=== PATIENT | female | born 1990 | race Caucasian/White ===

== ENCOUNTER 2023-10-02 08:45 | Outpatient (CLI) | payer OTHER, SELFPAY | END 2023-10-02 08:46 | disposition home or self-care (01) | LOC: NFLDREF 10-04 07:01 | PROVIDERS: Visit Provider Advanced Practice Midwife | DX: Z34.93 Encounter for supervision of normal pregnancy, unspecified, third trimester (principal); Z3A.28 28 weeks gestation of pregnancy | CPT/HCPCS: 86592; 86787 ==

== ENCOUNTER 2023-11-29 10:34 | Outpatient (CLI) | payer OTHER, SELFPAY ==
[2023-11-30 13:42] LABS: Strep B DNA Probe Negative (Negative)
[2023-11-30 14:04] LABS: Strep B Susceptibility Needed? No
== END 2023-11-29 10:35 | disposition home or self-care (01) ==
PROVIDERS: Visit Provider Registered Nurse
DX: Z34.93 Encounter for supervision of normal pregnancy, unspecified, third trimester (principal); Z3A.36 36 weeks gestation of pregnancy
CPT/HCPCS: 87081; 87653

== ENCOUNTER 2023-12-17 18:10 | Outpatient (CLI) | payer OTHER, SELFPAY ==
[2023-12-17 18:39] VITALS: PULSE 88; O2SAT 97
[2023-12-17 18:40] VITALS: BP 124/82; PULSE 95
--- NOTE | 2023-12-17 22:15 | PC.OBNST ---
NST Note NST Note Start: 12/17/23 18:21 Freq: ONCE Status: Active Protocol: Document 12/17/23 22:12 MMT (Rec: 12/17/23 22:14 MMT [id number]) NST Note 3 Para (# of births) 0 EDC 12/21/23 Gestational Age In Weeks & Days 39 Weeks & 3 Days Patient Presented with Complaint(s) of Contractions/cramping Other Complaints Pt has been kimber every 5-6 minutes for the past hour. Pt had been kimber since 329. Reactive Yes Appropriate for Gestational Age Yes RN Shelia Zelaya RN Date 12/17/23 Reactive Yes Appropriate for Gestational Age Yes RN Yevgeniy Langford RN Date 12/17/23 OB NST charge Yes Complete NST Note via Write Note Yes The provider's electronic signature indicates the NST is reactive/appropriate for gestational age. *Note to provider: If an addendum is required, open the patient's chart and click on the note under the Nurse/Allied Health tab.
== END 2023-12-17 22:03 | disposition home or self-care (01) ==
LOC: OB OUT 18:11 → OB 18:11
PROVIDERS: Visit Provider Midwife
DX: O47.1 False labor at or after 37 completed weeks of gestation (principal); Z3A.39 39 weeks gestation of pregnancy
CPT/HCPCS: 59025; G0463

== ENCOUNTER 2023-12-18 23:04 | Outpatient (CLI) | payer OTHER, SELFPAY ==
[2023-12-18 23:15] VITALS: BP 125/81; PULSE 97
[2023-12-18 23:23] VITALS: TEMP 36.6
[2023-12-19] MEDS: hydrOXYzine pamoate 25 MG CAPSULE 100 MG PO (00:37)
[2023-12-19] MEDS: MORPHINE 10 MG/ML inj IM (00:37)
--- NOTE | 2023-12-19 01:04 | PC.OBNST ---
NST Note NST Note Start: 12/18/23 23:07 Freq: ONCE Status: Active Protocol: Document 12/19/23 01:03 CHERI (Rec: 12/19/23 01:04 CHERI [id number]) NST Note 3 Para (# of births) 0 EDC 12/21/23 Gestational Age In Weeks & Days 39 Weeks & 5 Days Patient Presented with Complaint(s) of Contractions/cramping Reactive Yes Appropriate for Gestational Age Yes RN Tiffany Hernandez RN Date 12/19/23 Reactive Yes Appropriate for Gestational Age Yes CHRISTY Calle RN Date 12/19/23 OB NST charge Yes Complete NST Note via Write Note Yes The provider's electronic signature indicates the NST is reactive/appropriate for gestational age. *Note to provider: If an addendum is required, open the patient's chart and click on the note under the Nurse/Allied Health tab.
== END 2023-12-19 01:04 | disposition home or self-care (01) ==
LOC: OB OUT 23:04 → OB 23:05
PROVIDERS: Visit Provider Advanced Practice Midwife
DX: O47.03 False labor before 37 completed weeks of gestation, third trimester (principal); Z3A.39 39 weeks gestation of pregnancy
CPT/HCPCS: 59025; G0463; A9270; J2270

== ENCOUNTER 2023-12-20 11:44 | Inpatient (IN) | payer OTHER, SELFPAY ==
[2023-12-20] VITALS (7 sets, daily range): BP systolic 103–131; BP diastolic 69–81; PULSE 76–102; RESP 16–18; TEMP 36.6–36.8; O2SAT 92–100; BMI 26.3
--- NOTE | 2023-12-20 10:07 | W.PM.LDBA ---
Subjective History of Present Illness Date Seen: 12/20/23 Narrative: Patient is being admitted to Labor and Delivery for prodromal labor and increased support. She is a 33 year old at 39w6d weeks gestation. She has been in early labor since early Monday morning. Her full history and physical was dictated by Lori DELGADO on 12/06/2023. Please see this for details. Specific Issues/Plans G 3 P 0020 Hospital H& P completed 12/06/2023 by Lori DELGADO # H/o Melanoma in 2011. Due for f/u with Derm. Patient planning to schedule later this year. # Anemia. PO iron started at 28 weeks. #Measuring small for dates at 38 wks, growth u/s ordered. Covid: Completed initial vaccine. No boosters. Recommended. Patient declines. Tdap: 10-18-23 05/25/2023: Blood type A positive, antibody screen negative, hemoglobin 13.7, platelets 351, rubella immune, VDRL nonreactive, hepatitis-B antigen nonreactive, HIV nonreactive, chlamydia and gonorrhea both negative, urine culture negative, Pap normal, negative HPV, hepatitis-C negative, hemoglobin A1c 5.3, varicella unknown 06/22/2023: Maternity 21 negative Ultrasound: May 25: Single live IUP heart rate 167 beats per minute 08/04/2023: anatomy scan: Normal ultrasound. Growth consistent with dates. EFW 62%. Normal anatomy. 32wk Mental Health: PHQ: 8 BAM: 3 OB - Problem Based A/P Additional Plan (1) Pain during labor: Status: Acute (2) : Status: Acute (3) Anemia affecting in third trimester: Status: Acute Plan ASSESSMENT:?? 33 at 39w6d weeks gestation?? complicated by:??anemia in , low fundal heights Labor type: Early prodromal labor?? Category 1 FHR pattern.??? Labor uncomplicated ?? GBS negative? PLAN:?? 1. Routine intrapartum cares as ordered. Continue with expectant management?? 2. Monitoring per policy, intermittent?? 3. Planning unmedicated . Desires water . Consent signed. Hep C negative. Candidate for analgesia of choice.?Will use code word for wanting an epidural if she changes her mind?? 4. Patient encouraged to reposition and ambulate to promote physiologic labor and alternating with rest.?? 5. Blood type ordered so we have testing at our in house lab and ok'd by patient.? 6. Anticipate ? 7. To consider augmentation as patient desires. Delivery/Labor/Induction Plan Plan: expectant management OB Exam Physical Exam Vital signs: VSS Narrative: Vitals Reviewed Constitutional:? Alert and oriented x3 HEENT:? Normocephalic, atraumatic Neck:? Supple Lungs:? Clear to auscultation bilaterally Heart:? Regular rate and rhythm, no murmur, rub or gallop Abdomen:? Soft, nontender, and gravid. Vertex by Joshua's, confirmed with cervical exam. Extremities:? No edema or erythema Cervix: 3 cm/95%/-1 station/vertex with palpable sutures NST: 140 bpm/moderate variability/accelerations present/decelerations absent/contractions q 4-5 min moderate to palpate x 60-90 sec with >1 min soft abdomen in between
[2023-12-20 12:55] LABS: Basophils Absolute Auto 0.02 K/uL (0.00-0.30); Basophils Percent Auto 0.2 % (0.0-3.0); Eosinophils Absolute Auto 0.03 K/uL (0.00-0.50); Eosinophils Percent Auto 0.3 % (0.0-7.0); Hematocrit 38.7 % (33.0-51.0); Immature Granulocytes Abs Auto 0.07 K/uL (0.00-0.30); Immature Granulocytes Pct Auto 0.7 %; Lymphocytes Percent Auto 15.4 % (20-44); Mean Corpuscular HGB Conc 34 gm/dL (32-36); Mean Corpuscular Hemoglobin 30 pg (26-34); Mean Corpuscular Volume 89 fL (80-100); Monocytes Percent Auto 4.4 % (0.0-11.0); Platelet Count* 268 K/uL (140-440); RDW Coefficient of Variation % 13.5 % (11.5-15.5); Red Blood Count 4.34 m/uL (4.00-5.20)
--- NOTE | 2023-12-20 18:50 | P.OBPN_ITS ---
Subjective Time Seen by Provider: 16:30 Date Seen: 12/20/23 Narrative: Damaris is coping well with labor. Contractions are reported as stronger and closer together. She is feeling them mostly in the front low abdomen. Her mother is here supporting her. She is trying to get rest, stay hydrated and eat. Objective Exam: Objective: Constitutional: Alert and oriented x3, no distress, coping well Vital signs stable, see nurse documentation Abdomen: gravid, contractions palpate mild to moderate with contractions and soft between for >1 minute Cervix: deferred. NST: 145 bpm/moderate variability/accelerations present/decelerations absent/contractions q 3-5 min Vital Signs: Last Vital Signs Temp 98.2 F 12/20/23 14:46 Pulse 91 12/20/23 14:46 Resp 16 12/20/23 14:46 BP 125/75 12/20/23 14:46 Pulse Ox 92 12/20/23 14:47 Plan Plan: ASSESSMENT:?? 33yo at 39w6d weeks gestation?? complicated by:??anemia Labor type: Spontaneous, Active labor?? Category 1 FHR pattern.??? Labor complicated by: none?? GBS negative? ?? PLAN:?? 1. Routine intrapartum cares as ordered. Continue with expectant management?? 2. Monitoring per policy, intermittent, though nurse just had her on the continuous monitor to time the contractions more accurately.?? 3. Planning unmedicated . Desires water . Consent signed. Hep C negative. Candidate for analgesia of choice.??? 4. Patient encouraged to reposition and ambulate to promote physiologic labor a nd .?? 5. Anticipate , can consider augmentation if labor is protracted when active or when patient desires. ? ?
--- NOTE | 2023-12-20 18:59 | PM.OBPNL ---
Subjective Time Seen by Provider: 18:45 Date Seen: 12/20/23 Narrative: Damaris is feeling much more intense contractions over the last half hour. She is tearful at times, but seems to be relaxing well. She has not mentioned her code word for pain medication. Rick and her friend are supporting her at the bedside. Encouraging PO fluids and position changes. She is requesting the labor tub. Objective Vital Signs: Last Vital Signs Temp 98.2 F 12/20/23 14:46 Pulse 91 12/20/23 14:46 Resp 16 12/20/23 14:46 BP 125/75 12/20/23 14:46 Pulse Ox 92 12/20/23 14:47 Comments: Objective: Constitutional: Alert and oriented x3, mild distress, coping well Vital signs stable, see nurse documentation Abdomen: gravid, contractions palpate moderate to strong and are soft between Cervix: deferred NST: 145 bpm/audible increases, no audible decreases/contractions are q 3-5 minutes Plan Plan: ASSESSMENT:?? 33yo at 39w 6d gestation?? complicated by:??anemia, currently stable Labor type: Spontaneous, Active labor?? Category 1FHR pattern.??? Labor complicated by: none?? GBS negative? ?? PLAN:?? 1. Routine intrapartum cares as ordered. Continue with expectant management?? 2. Monitoring per policy, intermittent?? 3. Planning unmedicated . Desires water . Consent signed. Hep C negative. Candidate for analgesia of choice.??? 4. Patient encouraged to reposition and ambulate to promote physiologic labor and .?? 5. Anticipate ? ?
--- NOTE | 2023-12-20 23:28 | PM.OBPNL ---
Subjective Time Seen by Provider: 23:15 Date Seen: 12/20/23 Narrative: Damaris has been coping well. Contractions have not continued to strengthen or increase in frequency but still palpate moderate. The RN checked her cervix to see if there was time for Liu to go care for the dogs and found her 4 cm dilated. There have been no heart rate concerns. She is still well supported by Imelda Hatfield and her mother. She is eating small amounts and taking PO well. Objective Exam: Objective: Constitutional: Alert and oriented x3, no distress, coping well Vital signs stable, see nurse documentation Abdomen: gravid, contractions palpate moderate with contractions per nursing NST: 145 bpm with audible increases, no decreases/contractions q 4-5 min Vital Signs: Last Vital Signs Temp 98.1 F 12/20/23 21:35 Pulse 97 12/20/23 20:12 Resp 18 12/20/23 20:12 BP 103/69 12/20/23 20:12 Pulse Ox 100 12/20/23 19:00 Plan Plan: ASSESSMENT:?? 33 at 39.6 weeks gestation?? complicated by:??anemia, now stable Labor type: Spontaneous, prodromal labor Category 1 FHR pattern.??? Labor complicated by: prodromal labor?? GBS negative? ?? PLAN:?? 1. Routine intrapartum cares as ordered. Continue with expectant management?? 2. Monitoring per policy, continuous or intermittent?? 3. Planning unmedicated . Desires water . Consent signed. Hep C negative. Candidate for analgesia of choice.??? 4. Patient encouraged to reposition and ambulate to promote physiologic labor and .?? 5. Options reviewed including augmentation with AROM, therapeutic rest with vistaril and morphine, epidural pain management. Patient would like to utilized morphine and vistaril at full strength at this time. Sleep encouraged for all. No medical necessity to progress quicker at this time outside of her preference and how she is coping. ? 6. Recommended IV start and Active management of third stage due to prolonged labor. 7. Anticipate ? ?
[2023-12-21] VITALS (28 sets, daily range): BP systolic 100–136; BP diastolic 51–91; PULSE 79–118; RESP 12–18; TEMP 36.5–36.9; O2SAT 95–97
[2023-12-21] MEDS: hydrOXYzine pamoate 25 MG CAPSULE 100 MG PO (00:05)
[2023-12-21] MEDS: MORPHINE 10 MG/ML inj IM (00:06)
--- NOTE | 2023-12-21 06:26 | PM.OBPNL ---
Subjective Date Seen: 12/21/23 Narrative: Damaris has gotten some therapeutic rest and is now open to pitocin augmentation after breakfast. RN to initiate. Objective Exam: Objective: Vital signs stable, see nurse documentation Cervix: per earlier nurse exam 4 cm/90%/0 station NST: 130 bpm/moderate variability/+accelerations/no decelerations/contractions irregular Vital Signs: Last Vital Signs Temp 98 F 12/21/23 00:01 Pulse 79 12/21/23 04:31 Resp 18 12/21/23 00:01 BP 121/74 12/21/23 04:31 Pulse Ox 100 12/20/23 19:00 Plan Plan: Labor A/P? ASSESSMENT:?? 33yo at 40w0d gestation?? complicated by:??anemia, now stable Labor type:Spontaneous, prodromal labor?? Category 1 FHR pattern.??? Labor complicated by: prodromal labor?? GBS negative? ?? PLAN:?? 1. Routine intrapartum cares as ordered. Augmentation with pitocin with patient consent given.? 2. Monitoring per policy, continuous? 3. Planning unmedicated . Desires water . Consent signed. Hep C negative. Candidate for analgesia of choice.??? 4. Patient encouraged to reposition and ambulate to promote physiologic labor and .?? 5. Plan IV access and Active management of third stage due to prolonged labor.? 6. Anticipate ?
[2023-12-21] MEDS: LACTATED RINGERS 1000 ML 1,000 ML 75 ML IV (06:41)
[2023-12-21] MEDS: OXYTOCIN 30 unit/500 ML in NS 30 UNIT/500 ML BAG IVPB (06:42)
[2023-12-21 07:13] LABS: Slide Review Reflex No
[2023-12-21] MEDS: ONDANSETRON 2 MG/ML inj 4 MG IV (09:54)
--- NOTE | 2023-12-21 09:55 | PM.OBPNL ---
Subjective Time Seen by Provider: 09:00 Date Seen: 12/21/23 Narrative: ?Damaris is coping well with labor pain/contractions. ?Liu and her friend are with her for support. ?She would like to continue with repositioning, relaxation and breathing for comfort and pain management.?Has not mentioned her code word for alternative pain management at this time. Encouraged to eat, she stated she felt nauseated between contractions so Zofran was offered and she agreed to try this. Her friend was going to order her food and then after she has eaten, she is encouraged to do [employer] circuit with RN help. Objective Exam: VSS, afebrile General Appearance:? Calm, cooperative. ?No acute distress. ? Psychiatric Exam: Alert and oriented, appropriate affect Abdomen: Gravid Ctx: ?Q 2-3 min apart. ? ? ?Strong FHTs: ?Baseline: 150. ? ? Variability: moderate. ?Accels:+ . ? ?Decels: ?-. SVE: deferred Membranes: Intact ? Vital Signs: Last Vital Signs Temp 97.9 F 12/21/23 07:20 Pulse 82 12/21/23 08:22 Resp 18 12/21/23 00:01 BP 127/90 H 12/21/23 08:22 Pulse Ox 100 12/20/23 19:00 Plan Plan: Assessment:?? at 40.0 weeks gestation?? GBS neg Patient is coping well with challenges of labor.?? Labor type: Induced, Active labor? Category 1 FHR pattern.? complicated by: anemia, now stable Labor complicated by: prolonged prodromal labor, now on IV Pitocin? Plan:?? Pt to eat if able then [employer] as able Continue with routine intrapartum cares as ordered.?? Patient encouraged to move and change positions to promote physiologic labor and .?? Nonpharmacologic comfort measures per patient preference. Candidate for analgesia of choice if desired. Patient planning waterbirth Anticipate progress to NVD. ?
--- NOTE | 2023-12-21 10:29 | P.OBPN_ITS ---
Subjective Date Seen: 12/21/23 Narrative: Damaris is feeling more pressure with contractions and had passed a mucus plug recently. She is requesting a cervical exam to help her with decisions about what she would like to do moving forward Objective Exam: VSS, afebrile General Appearance:? Calm, cooperative. ?No acute distress. ? Psychiatric Exam: Alert and oriented, appropriate affect Abdomen: Gravid Ctx: ?Q 2-3 min apart. ? ? ?Strong FHTs: ?Baseline: 145. ? ? Variability: moderate. ?Accels: -. ? ?Decels: ?-. SVE: /0, bloody show Membranes: Intact ? Vital Signs: Last Vital Signs Temp 98.2 F 12/21/23 09:55 Pulse 88 12/21/23 10:00 Resp 18 12/21/23 00:01 BP 130/80 12/21/23 10:00 Pulse Ox 100 12/20/23 19:00 Plan Plan: Assessment:?? at 40.0 wks gestation?? GBS neg Patient is coping well with challenges of labor.?? Labor type: Induced, Active labor? Category 2 FHR pattern.? complicated by: anemia, now stable Labor complicated by: prolonged prodromal labor, now 8cm? Plan:?? Pt would like to enter waterbirth tub at this time Continue with routine intrapartum cares as ordered.?? Patient encouraged to move and change positions to promote physiologic labor and .?? Nonpharmacologic comfort measures per patient preference. Candidate for a nalgesia of choice if desired. Patient planning waterbirth Anticipate progress to NVD. ?
[2023-12-21] MEDS: LACTATED RINGERS 1000 ML 1,000 ML 500 ML IV (13:30)
[2023-12-21] MEDS: LIDOCAINE 1 % PF 30 ML INJECTION (14:20)
--- NOTE | 2023-12-21 15:09 | W.PM.OBVAGDE ---
OB Procedure Vag Delivery Mother Details Mother Details: The patient is a 33 year-old, 3, Para 0, admitted on 12/20/23 at 39.6 weeks gestation. : 3 Para: 1 Weeks Gestation: 40.0 Admission Date: 12/20/23 Additional Details Amniotic Membrane Status: AROM Amniotic Membrane Rupture Date: 12/21/23 Amniotic Membrane Rupture Time: 12:17 Amniotic Membrane Fluid Description: Meconium Stained Analgesia/Anesthesia Type: None and Local (for repair) Waterbirth: No Pitcoin: Yes Intrapartal Events: Labor Induction Delivery augmentation: rupture of membranes Labor Onset: 10:20 Complete: 12:42 Pushin:44 Heart: heart tones during second stage were continuously monitored with early and variable decelerations and moderate variability. Delivery Details Delivery Date: 12/21/23 Delivery Time: 14:05 Route of delivery: Infant Gender: Female Infant Viability: Alive; Heart Rate Present Position at Delivery: OA Delivery Details: 33?y.o?at 40.0 weeks.? Damaris was admitted with prolonged prodromal labor for rest and support. She was offered induction with Pitocin this morning after having stayed overnight and slept off and on. She was started on IV Pitocin this morning and progressed normally to 8cm at 1020. She was planning a waterbirth and desired to enter the tub at that time. She began to spontaneously push with some contractions around 1130 and was repositioning often. IV Pitocin was turned off just before she entered the tub as she was kimber often. Intermittent monitoring in the tub for FHR 145-155 with no audible decelerations was noted for most of the time she was in the waterbirth tub. Around 1200 FHR was consistently 160-170's so decision was made to have her exit the tub and be placed on external monitor. A fluid bolus was given and cervical exam was rim on right with intact membranes. Discussed R/B/A of AROM at that time and consent was given to proceed. AROM showed small amount of bloody fluid, unclear if there was meconium. Shortly after she began pushing and while pushing it became clear there was meconium stained fluid so pediatric provider was asked to attend delivery. ? She became complete at 1242.??She pushed in right tilt, semi-fowlers and left side positions effectively.? Spontaneous vaginal delivery at 1405 of?a viable? female infant.??Delivered in vertex OA position.??Shoulders delivered easily.? Spontaneous cry noted.?? placed on maternal abdomen.??Cord?was clamped and cut after a 3 minute delay, then the pediatric provider requested baby be brought to the warmer for evaluation.??Nose and mouth were bulb suctioned.? Shoulder dystocia: no? Nuchal cord: no? Meconium stained?fluid: yes ? Water : no? ? ? 7 at 1 minute and 9 at 5 minutes.? Weight is pending. ? Placenta delivered spontaneously and?complete?at 1413 with a?3 vessel?cord.?? Bleeding controlled with fundal massage and?pitocin?for AMTSL.? ? Mother and were stable after delivery.? ? Lacerations:? bilateral labial tears repaired with 3-0?vicryl.?? ? Bleeding?post delivery?was: minimal. ?The fundus was firm to palpation.? Blood loss: 50?mL.? Blood loss measurement type: QBL? ? ? Sponge,?lap?and needles counts are correct.? Mother and were stable after delivery.? 1 Minute Interval Total Score: 7 5 Minute Interval Total Score: 9 Additional Details Shoulder Dystocia: No Placenta Delivery Time: 14:13 Placental Delivery Description: Spontaneous Delivery repair: Vicryl Procedure Done: Global Blood Loss: 50 Laceration: Labial (bilateral) Blood Loss Measurement Type: QBL Bakri Used: No Sponge/Need Count Correct: Yes Cord Vessel Description: 3 Vessels Event Summary Status: Mother and infant were stable after delivery. Disposition: floor
[2023-12-21] MEDS: IBUPROFEN 600 MG TABLET PO (18:59)
[2023-12-22] VITALS (8 sets, daily range): BP systolic 106–117; BP diastolic 69–76; PULSE 83–111; RESP 12–18; TEMP 36.6–37.2; O2SAT 95–97
[2023-12-22 01:51] LABS: Rapid Plasma Reagin (RPR) Non Reactive (Non Reactive)
[2023-12-22] MEDS: IBUPROFEN 600 MG TABLET PO ×4 (04:15→23:45)
--- NOTE | 2023-12-22 08:42 | P.OBPN_ITS ---
OB - PN:Subj Subjective Date Seen: 12/22/23 Narrative: Damaris is a 33 y.o. G 1 P 1 who was admitted to L & D for prodromal labor and poor labor support. She had a NVD that was uncomplicated. The patient feels well. ?The pain is well controlled with current medications. ?She has no new com plaints. ?She is breast feeding and reports things are going well. the patient has done well.? Vitals have been stable.? She has remained afebrile.? Has a good appetite, is tolerating a general diet. ?She is voiding without difficulty.? She is passing gas and has not had a bowel movement.? She is ambulating and denies any dizziness.? Has small amount of rubra lochia. OB - PN: Obj Exam Physical Exam: Vital signs: Temp Pulse Resp BP Pulse Ox O2 Del Method 98.9 F 111 H 16 106/69 95 Room Air 12/22/23 08:11 12/22/23 08:11 12/22/23 08:11 12/22/23 08:11 12/22/23 08:11 12/22/23 08:11 Narrative: GENERAL APPEARANCE:? normal affect, alert, no distress MOOD:? appropriate CHEST:? clear to auscultation HEART:? regular rate and rhythm ABDOMEN:? soft, non-tender the uterine fundus is At Umbilicus, Midline and is appropriate for the stage of recovery. PERINEUM:? mild edema of the perineum, there is a labial laceration, that is healing well. EXTREMITIES:? normal and no edema OB - PN: Obj Data Labs Labs: Laboratory Results - last 24 hr 12/20/23 12:40 RPR Screen Non Reactive OB - PN: A/P Delivery Assessment and Plan (1) care and examination immediately after delivery: Status: Acute (2) Lactating mother: Status: Acute Plan day: 1 Plan: routine care Comments: plan: , may see if needed Anticipate discharge home tomorrow.
[2023-12-22] MEDS: DOCUSATE SODIUM 100 MG CAPSULE PO (09:52)
[2023-12-23 04:43] VITALS: BP 107/73; PULSE 96; RESP 16; TEMP 36.9; O2SAT 96
[2023-12-23 08:43] VITALS: BP 103/70; PULSE 98; RESP 16; TEMP 37.1
--- NOTE | 2023-12-23 11:05 | P.DS_ITS ---
DS: Providers Provider Date Seen: 12/23/23 Date of admission: 12/20/23 11:44 Primary care physician: Not a Local Provider Admitting Clinician: Eleonora Lao CNM Attending Physician on discharge: Supa Verdugo CNM Date of Discharge: 12/23/23 DS: Diagnosis Discharge Diagnosis (1) Lactating mother: Status: Acute (2) care and examination immediately after delivery: Status: Acute (3) Anemia affecting in third trimester: Status: Acute Exam Narrative: Exam Narrative: VSS, afebrile GENERAL APPEARANCE: ?normal affect, alert, no distress MOOD: ?appropriate HEENT: normocephalic, neck supple, full ROM CHEST: ?Symmetrical chest wall movement. ?Normal respiratory effort. ?Clear to auscultation HEART: ?regular rate and rhythm ABDOMEN: ?soft, non-tender. Uterine fundus is firm, at Umbilicus, Midline and is appropriate for the stage of recovery. ?Bowel sounds present. PERINEUM: ?mild edema of the perineum, there is a labial lacerations that are healing well. EXTREMITIES: ?normal and no edema Const: Vital Signs, click to edit/add: Vital Signs - 24 hr 12/22/23 11:30 12/22/23 11:48 12/22/23 15:41 Temperature 98.0 F 98.0 F 98.0 F Pulse Rate [Blood Pressure Cuff] 95 95 93 Respiratory Rate 18 16 16 Blood Pressure [Ri ght Arm] 107/74 107/74 117/72 Pulse Oximetry 97 97 97 Oxygen Delivery Me thod Room Air Room Air Room Air 12/22/23 19:58 12/22/23 23:39 12/23/23 04:43 Temperature 98.2 F 98.5 F 98.5 F Pulse Rate [Blood Pressure Cuff] 86 83 96 Respiratory Rate 16 16 16 Blood Pressure [Ri ght Arm] 113/76 110/73 107/73 Pulse Oximetry 97 97 96 Oxygen Delivery Me thod Room Air Room Air Room Air 12/23/23 08:43 Temperature 98.8 F Pulse Rate [Blood Pressure Cuff] 98 Respiratory Rate 16 Blood Pressure [Ri ght Arm] 103/70 Pulse Oximetry Oxygen Delivery Me thod Room Air Documenting provider has reviewed patient's vital signs: yes OB - DS: Summary Hospital Course Hospital Course: Damaris is a 33 y.o. who was admitted to L & D for induction of labor. ?She had an uncomplicated NVD.?The patient feels well. ?The pain is well controlled with current medications. ?She has no new complaints. ?She is breast feeding and reports things are going well.? the patient has done well.? Vitals have been stable.? She has remained afebrile.? Has a good appetite, is tolerating a general diet. ?She is voiding without difficulty.? She is passing gas and has not had a bowel movement.? She is ambulating and denies any dizziness.? Has Small amount of rubra lochia. ?She is undecided on her plan for prevention. Damaris talked freely about her partners struggle with alcohol abuse. She feels he is doing well at this time but acknowledges he has a problem. She reports feeling safe at home with him and denies any abuse. She was appreciative of all the support they have received while in the hospital. Peripartum Data delivery method: Vaginal Laceration description: Labial complications: none [place] Gender: Female Discharge Plan: Home Status at Discharge Functional status at discharge: independent ambulation Overall status at discharge: patient is progressing back to baseline Time Spent with Patient Time attestation: Total time spent providing and/or coordinating discharge services: Time spent: Less than 30 minutes Discharge Plan Discharge Disposition: Home, Self-Care Date of Admission: 12/20/23 11:44 Attending Provider on Discharge: Supa Verdugo Primary Care Provider: Provider,Not a Local Condition: Stable Anticipated Discharge Date/Time: 12/23/23 15:00 Discharge Medications: New acetaminophen 500 mg Tablet 1,000 mg PO Q6H PRNQty: 0 0RF docusate sodium 100 mg Capsule 100 mg PO DAILY Qty: 90 2RF ibuprofen 600 mg Tablet 600 mg PO Q6H PRNQty: 60 0RF Continued DHA 200 mg capsule 200 mg PO DAILY Ferretts Carbonyl Iron 18 mg iron tablet,chewable 18 mg PO DAILY Discharge Orders: Discharge Order (Routine); Ordered 12/23/23 Ordered By: Supa Verdugo Patient Education: OB Over the Counter Medication Information, OB Vaginal/Breast Feeding Activity Level: Activity as Tolerated Discharge Diet: Regular Follow Up Appointments: Provider,Not a Local [Primary Care Provider] - [facility] [Provider Group] Forms: MyHealth Info Instructions
== END 2023-12-23 15:28 | disposition home or self-care (01) | DRG 807 ==
LOC: OB OUT 11:47 → OB 11:47
PROVIDERS: Admitting Provider Midwife; Visit Provider Midwife
DX: O62.0 Primary inadequate contractions (principal); Z37.0 Single live birth; O99.02 Anemia complicating childbirth; D64.9 Anemia, unspecified; O77.0 Labor and delivery complicated by meconium in amniotic fluid; O70.0 First degree perineal laceration during delivery; O73.1 Retained portions of placenta and membranes, without hemorrhage; Z85.820 Personal history of malignant melanoma of skin; Z3A.39 39 weeks gestation of pregnancy
CPT/HCPCS: 36415; 59025; 85025; 86592; 86850; 86900; 86901; G0463; A9270; J2001; J2270; J2405; J7120